=== PATIENT | female | born 1975 | race Caucasian/White ===

== ENCOUNTER 2017-08-01 19:13 | Emergency (ER) | payer MEDICAID ==
[2017-08-01 19:29] VITALS: BP 127/90
[2017-08-01] MEDS ORDERED: KETOROLAC TROMETHAMINE 60 MG/2 ML VIAL IM ONE ×2 (19:55→20:00)
[2017-08-01] MEDS ORDERED: ORPHENADRINE CITRATE 30 MG/ML VIAL IM ONE (19:55)
[2017-08-01] MEDS ORDERED: ORPHENADRINE CITRATE 30 MG/ML VIAL ONE (20:00)
--- NOTE | 2017-08-01 20:03 | ERNOTE ---
Upper Extremity HPI - Narrative Date of Service: 08/01/17 - General Extremities Pain Location: shoulder: left, other: left - neck Time Seen by Provider: 08/01/17 19:45 Source: patient Exam Limitations: no limitations - Immun/Allergies/Home Medications Immunizations: IMMUNIZATION HX Immunizations Up to Date Yes History of Influenza Vaccine No Hx Pneumococcal Vaccination No Allergies/Adverse Reactions: Allergies Allergy/AdvReac Type Severity Reaction Status Date / Time No Known Allergies Allergy Verified 08/01/17 19:29 Home Medications: HOME MEDICATIONS To/Vit B12/Folic Acid/Vit B6 08/01/17 [Last Taken Unknown] Cyclobenzaprine HCl [Flexeril] 10 mg PO TID PRN #30 tab 08/01/17 [Last Taken Unknown] Meloxicam 7.5 mg PO DAILY #20 tablet 08/01/17 [Last Taken Unknown] Omeprazole 40 mg PO DAILY 08/01/17 [Last Taken Unknown] Probiotic 08/01/17 [Last Taken Unknown] - History of Present Illness Narrative: Pt. comes in with c/o L neck pain that is chronic for her. Pt. states that her pain flaired two weeks ago after being dormant for four months after getting an injection in her neck for arthritis pain from her orthopedic surgeon in [place]. Pt. states that movement of her L arm causes pain in the neck that radiates down her L arm. Pt. denies any recent illness or injury. Review of Systems - Review of Systems Constitutional: Present: no symptoms reported. Absent: recent illness, fever, chills, weakness, fatigue, malaise EYE: Present: no symptoms reported ENT: Present: no symptoms reported Respiratory: Present: no symptoms reported. Absent: shortness of breath, cough , wheezing Cardiology: Present: no symptoms reported. Absent: chest pain, palpitations, edema Gastrointestinal/Abdominal: Present: no symptoms reported. Absent: nausea, vomiting, diarrhea, abdominal pain Genitourinary: Present: no symptoms reported Musculoskeletal: Present: no symptoms reported. Absent: back pain, joint pain Skin: Present: no symptoms reported Neurological: Present: no symptoms reported. Absent: headache, dizziness/light- headedness, numbness, tingling All Other Systems: All systems neg except as marked - Patient's Past Medical History Patient History - Cardiac/Respiratory: No pertinent hx Patient History - Cancer: No Hx of Cancer Patient History - Surgical Procedures: Appendectomy, Colonoscopy, D & C, EGD, Tubal Ligation, Other Patient History - Other: None LMP (females 10-50): 1 month - Family History Mother Family History - Medical: Diabetes Type 2, Renal Disease, Other Family History - Cardiac/Respiratory: Hypertension Father Family History - Medical: No pertinent hx Family History - Cardiac/Respiratory: No pertinent hx Brother Family History - Medical: No pertinent hx Family History - Cardiac/Respiratory: No pertinent hx - Social History Living Situations: home Abuse History: No History of abuse Psych History: Hx of Depression Smoking Status: Never smoker - Immunizations Immunizations Up to Date: Yes Hx Pneumococcal Vaccination: No History of Influenza Vaccine: No Physical Exam - Physical Exam General Appearance: Present: wd/wn, alert, no apparent distress Head Exam: Present: normal inspection, no evidence of injury Eye Exam: Normal inspection: bilateral, PERRL: bilateral, EOMI: bilateral Ears, Nose, Throat: Present: normal ENT inspection, normal pharynx Neck: Present: full range of motion, tender lateral - L paraspinous with spasm. Absent: lymphadenopathy (R), lymphadenopathy (L), tender posterior midline Respiratory: Present: no respiratory distress, normal breath sounds, no accessory muscle use, chest nontender, lungs clear Cardiovascular/Chest: Present: regular rate, rhythm, no murmur, normal peripheral pulses Back Exam: Present: normal inspection Extremity Exam: Present: normal inspection. 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 Absent: pallor, skin rash ED Progress - Vital Signs Patient's Vital Signs:: I have reviewed the patient's vital signs. Vital Signs: Vital Signs 08/01/17 19:26 Temperature 36.7 C Pulse Rate 80 Respiratory 14 Rate Blood Pressure 127/90 O2 Sat by Pulse 100 Oximetry - Progress/Reassessment Chief Complaint: Shoulder Injury/Pain Progress:: Pain free at discharge Departure Clinical Impression: Radiculopathy Qualifiers: Spinal region: cervical Qualified Code(s): M54.12 - Radiculopathy, cervical region - Departure Disposition: Home self-care Condition: Good Instructions: Cervical Radiculopathy Additional Instructions: Please follow up with primary provider in 2-3 days. Referrals: Steve Rai MD [Primary Care Provider] - Prescriptions: Cyclobenzaprine HCl [Flexeril] 10 mg PO TID PRN #30 tab PRN Reason: MUSCLE SPASMS Meloxicam 7.5 mg PO DAILY #20 tablet
[2017-08-01] MEDS ORDERED: NALBUPHINE HCL 20 MG/ML AMPUL IM ONE (20:52)
[2017-08-01] MEDS ORDERED: NALBUPHINE HCL 20 MG/ML AMPUL ONE (21:03)
[2017-08-01] MEDS ORDERED: ONDANSETRON 4 MG TAB.RAPDIS ONE (21:16)
[2017-08-01] MEDS ORDERED: ONDANSETRON 4 MG TAB.RAPDIS PO ONE (21:23)
== END 2017-08-01 21:35 | disposition home or self-care (01) ==
LOC: ER 19:13
DX: M54.12 Radiculopathy, cervical region (principal)